=== PATIENT | female | born 1980 | race Caucasian/White ===

== ENCOUNTER 2019-06-14 19:23 | Emergency (ER) | payer OTHER ==
[2019-06-14 19:43] VITALS: TEMP 97.9
[2019-06-14 19:43] LABS: Glucose,Whole Blood 222 mg/dL (75-99)
[2019-06-14] MEDS ORDERED: NALOXONE 0.4 MG/ML 10 ML VIAL IVP STA (19:45)
[2019-06-14] MEDS ORDERED: ONDANSETRON 4 MG/2 ML VIAL IVP STA (19:46)
[2019-06-14] MEDS ORDERED: SODIUM CHLORIDE 0.9% 1,000 ML IV STA (19:53)
[2019-06-14 19:58] LABS: HCT 38.3 % (34.0-46.0); HGB 11.9 gm/dL (11.4-16.0); Hypochromasia Slight; MCH 27.5 pg (25.0-35.0); MCHC 31.1 g/dL (31.0-37.0); MCV 88.5 fL (80.0-100.0); Mean Platelet Volume 8.5; Platelet Count 414 k/uL (150-450); RBC 4.33 m/uL (3.80-5.40); RDW 15.2 % (11.5-15.5); WBC 21.1 k/uL (3.8-10.6)
[2019-06-14 20:01] LABS: ALT 11 U/L (4-34); AST 19 U/L (14-36); Acetaminophen <10.0 ug/mL; African American GFR (CKD) >90 (>60 ml/min/1.73 sqM); Albumin 3.8 g/dL (3.5-5.0); Alcohol <10 mg/dL; Alkaline Phosphatase 81 U/L (38-126); Anion Gap 9 mmol/L; Blood Urea Nitrogen 12 mg/dL (7-17); Calcium 8.7 mg/dL (8.4-10.2); Carbon Dioxide 27 mmol/L (22-30); Chloride 100 mmol/L (98-107); Glucose 206 mg/dL (74-99); Non-African American GFR(CKD) >90 (>60 ml/min/1.73 sqM); Potassium 4.3 mmol/L (3.5-5.1); Salicylate 1.1 mg/dL; Sodium 136 mmol/L (137-145); Total Bilirubin 0.2 mg/dL (0.2-1.3); Total Protein 6.4 g/dL (6.3-8.2)
[2019-06-14 20:14] LABS: Appearance,Urine Clear (Clear); Bilirubin,Urine Negative (Negative); Blood,Urine Negative (Negative); Color,Urine Light Yellow; Glucose,Urine (UA) Negative (Negative); Ketones,Urine Negative (Negative); Leukocyte Esterase,Urine Negative (Negative); Nitrite,Urine Negative (Negative); PH, Urine 5.5 (5.0-8.0); Protein,Urine Negative (Negative); Urobilinogen,Urine <2.0 mg/dL (<2.0)
--- NOTE | 2019-06-14 20:25 | ED ---
Overdose HPI - General Stated Complaint: Unresponsive Time Seen by Provider: 06/14/19 19:30 Source: patient Mode of arrival: ambulatory Limitations: no limitations - History of Present Illness Initial Comments: Jaylene is a 38-year-old female is brought to the emergency department today by her daughter for possible overdose. History is provided by daughter upon arrival. Daughter reports that Jaylene came to her house was very upset stating that she was suicidal. She had mentioned that she had recently been prescribed anxiety medication by her primary care doctor. Her daughter is otherwise uncertain what medication she is on. Uncertain what she could've overdosed on but reports she decided to drive at the hospital for evaluation of suicidal thoughts and in route to the hospital patient stopped breathing and became blue. On waking patient admitted to snorting heroin, denies suicidal attempt. States she doesn't know why she did it. - Related Data Allergies Allergy/AdvReac Type Severity Reaction Status Date / Time aspirin Allergy Unknown Unknown Verified 06/14/19 19:44 Penicillins Allergy Unknown Unknown Verified 06/14/19 19:44 Pertussis Vaccines Allergy Unknown Unknown Verified 06/14/19 19:44 Review of Systems ROS Statement: Those systems with pertinent positive or pertinent negative responses have been documented in the HPI. ROS Other: All systems not noted in ROS Statement are negative. Past Medical History Past Medical History: Hypertension Past Surgical History: Section Smoking Status: Current every day smoker Past Alcohol Use History: None Reported Past Drug Use History: Heroin General Exam - General Exam Comments Initial Comments: Physical Exam GENERAL: Unresponsive HENT: Normocephalic, Atraumatic. EYES: Pupils 2 mm pinpoint minimally reactive PULMONARY: No spontaneous respirations upon initial evaluation, CARDIOVASCULAR: There is a regular rate and rhythm without any murmurs gallops or rubs. ABDOMEN: Soft and nontender with normal bowel sounds. SKIN: Skin is clear with no lesions or rashes and otherwise unremarkable. No tract morrow noted in the antecubital fossa : Deferred NEUROLOGIC: Unresponsive upon arrival After Narcan Patient is alert and oriented x3. Moving all extremities spontaneously MUSCULOSKELETAL: Normal extremities with adequate strength and full range of motion. No lower extremity swelling or edema. No calf tenderness. PSYCHIATRIC: Upset, admits to depression denies suicidal intentions Limitations: no limitations Course Vital Signs 06/14/19 06/14/19 06/14/19 19:33 19:49 20:48 Temperature 97.9 F 97.9 F Pulse Rate 120 H 85 Respiratory 18 4 L 18 Rate Blood Pressure 162/132 129/84 O2 Sat by Pulse 90 L 100 Oximetry Medical Decision Making - Medical Decision Making The patient was seen and evaluated immediately upon her in the emergency department, patient had arrived via private vehicle and was found to be unresponsive in the vehicle, BVM assisted respirations were initiated in triage and patient was wheeled to the resuscitation bay History is obtained from daughter at bedside there is concern for narcotic or benzodiazepine overdose IV access was obtained patient received Narcan and immediately was more awake alert and oriented Patient had some vomiting after Narcan Full workup was initiated, patient's leukocytosis likely reactive Patient is a drug screen other for amphetamines, methamphetamines and cocaine Patient medically cleared for evaluation by EPS Patient was evaluated by psychiatric services, patient is denying any suicidal attempt, patient's father declines to addition her, patient does admit to depression about the patient daughter comfortable with plan for discharge home. At this time patient has denied suicidal intent. Daughter will program director cable television her. S he is not petitioned and will be discharged home with referrals to outpatient management. - Lab Data Result diagrams: 06/14/19 19:42 06/14/19 19:42 Lab Results 06/14/19 06/14/19 06/14/19 Range/Units 19:32 19:42 19:42 WBC 21.1 H (3.8-10.6) k/uL RBC 4.33 (3.80-5.40) m/uL Hgb 11.9 (11.4-16.0) gm/dL Hct 38.3 (34.0-46.0) % MCV 88.5 (80.0-100.0) fL MCH 27.5 (25.0-35.0) pg MCHC 31.1 (31.0-37.0) g/dL RDW 15.2 (11.5-15.5) % Plt Count 414 (150-450) k/uL Neutrophils % (Manual) 49 % Lymphocytes % (Manual) 37 % Monocytes % (Manual) 9 % Eosinophils % (Manual) 5 % Neutrophils # (Manual) 10.34 H (1.3-7.7) k/uL Lymphocytes # (Manual) 7.81 H (1.0-4.8) k/uL Monocytes # (Manual) 1.90 H (0-1.0) k/uL Eosinophils # (Manual) 1.06 H (0-0.7) k/uL Nucleated RBCs 0 (0-0) /100 WBC Manual Slide Review Performed Hypochromasia Slight Sodium 136 L (137-145) mmol/L Potassium 4.3 (3.5-5.1) mmol/L Chloride 100 (98-107) mmol/L Carbon Dioxide 27 (22-30) mmol/L Anion Gap 9 mmol/L BUN 12 (7-17) mg/dL Creatinine 0.66 (0.52-1.04) mg/dL Est GFR (CKD-EPI)AfAm >90 (>60 ml/min/1.73 sqM) Est GFR (CKD-EPI)NonAf >90 (>60 ml/min/1.73 sqM) Glucose 206 H (74-99) mg/dL POC Glucose (mg/dL) 222 H (75-99) mg/dL POC Glu Vehicle Maintenance Technician ID Anila Ellington Calcium 8.7 (8.4-10.2) mg/dL Total Bilirubin 0.2 (0.2-1.3) mg/dL AST 19 (14-36) U/L ALT 11 (4-34) U/L Alkaline Phosphatase 81 (38-126) U/L Total Protein 6.4 (6.3-8.2) g/dL Albumin 3.8 (3.5-5.0) g/dL Urine Color Urine Appearance (Clear) Urine pH (5.0-8.0) Ur Specific Niles (1.001-1.035) Urine Protein (Negative) Urine Glucose (UA) (Negative) Urine Ketones (Negative) Urine Blood (Negative) Urine Nitrite (Negative) Urine Bilirubin (Negative) Urine Urobilinogen (<2.0) mg/dL Ur Leukocyte Esterase (Negative) Urine HCG, Qual (Not Detectd) Salicylates 1.1 mg/dL Urine Opiates Screen (NotDetected) Ur Oxycodone Screen (NotDetected) Urine Methadone Screen (NotDetected) Ur Propoxyphene Screen (NotDetected) Acetaminophen <10.0 ug/mL Ur Barbiturates Screen (NotDetected) U Tricyclic Antidepress (NotDetected) Ur Phencyclidine Scrn (NotDetected) Ur Amphetamines Screen (NotDetected) U Methamphetamines Scrn (NotDetected) U Benzodiazepines Scrn (NotDetected) Urine Cocaine Screen (NotDetected) U Marijuana (THC) Screen (NotDetected) Serum Alcohol <10 mg/dL 06/14/19 06/14/19 Range/Units 20:05 20:05 WBC (3.8-10.6) k/uL RBC (3.80-5.40) m/uL Hgb (11.4-16.0) gm/dL Hct (34.0-46.0) % MCV (80.0-100.0) fL MCH (25.0-35.0) pg MCHC (31.0-37.0) g/dL RDW (11.5-15.5) % Plt Count (150-450) k/uL Neutrophils % (Manual) % Lymphocytes % (Manual) % Monocytes % (Manual) % Eosinophils % (Manual) % Neutrophils # (Manual) (1.3-7.7) k/uL Lymphocytes # (Manual) (1.0-4.8) k/uL Monocytes # (Manual) (0-1.0) k/uL Eosinophils # (Manual) (0-0.7) k/uL Nucleated RBCs (0-0) /100 WBC Manual Slide Review Hypochromasia Sodium (137-145) mmol/L Potassium (3.5-5.1) mmol/L Chloride (98-107) mmol/L Carbon Dioxide (22-30) mmol/L Anion Gap mmol/L BUN (7-17) mg/dL Creatinine (0.52-1.04) mg/dL Est GFR (CKD-EPI)AfAm (>60 ml/min/1.73 sqM) Est GFR (CKD-EPI)NonAf (>60 ml/min/1.73 sqM) Glucose (74-99) mg/dL POC Glucose (mg/dL) (75-99) mg/dL POC Glu Vehicle Maintenance Technician ID Calcium (8.4-10.2) mg/dL Total Bilirubin (0.2-1.3) mg/dL AST (14-36) U/L ALT (4-34) U/L Alkaline Phosphatase (38-126) U/L Total Protein (6.3-8.2) g/dL Albumin (3.5-5.0) g/dL Urine Color Light Yellow Urine Appearance Clear (Clear) Urine pH 5.5 (5.0-8.0) Ur Specific Niles 1.010 (1.001-1.035) Urine Protein Negative (Negative) Urine Glucose (UA) Negative (Negative) Urine Ketones Negative (Negative) Urine Blood Negative (Negative) Urine Nitrite Negative (Negative) Urine Bilirubin Negative (Negative) Urine Urobilinogen <2.0 (<2.0) mg/dL Ur Leukocyte Esterase Negative (Negative) Urine HCG, Qual Not Detected (Not Detectd) Salicylates mg/dL Urine Opiates Screen Not Detected (NotDetected) Ur Oxycodone Screen Not Detected (NotDetected) Urine Methadone Screen Not Detected (NotDetected) Ur Propoxyphene Screen Not Detected (NotDetected) Acetaminophen ug/mL Ur Barbiturates Screen Not Detected (NotDetected) U Tricyclic Antidepress Not Detected (NotDetected) Ur Phencyclidine Scrn Not Detected (NotDetected) Ur Amphetamines Screen Detected H (NotDetected) U Methamphetamines Scrn Detected H (NotDetected) U Benzodiazepines Scrn Not Detected (NotDetected) Urine Cocaine Screen Detected H (NotDetected) U Marijuana (THC) Screen Not Detected (NotDetected) Serum Alcohol mg/dL Critical Care Time Critical Care Time: Yes Total Critical Care Time: 30 Critical Care Time: Critical Care Time Critical care time was exclusive of separately billable procedures and treating other patients and teaching time. Critical care was necessary to treat or prevent imminent or life-threatening deterioration. Given the critical condition in which the patient arrived, the patient was immediately assessed by myself and the nurse, and cardiac monitoring initiated due to the potential for rapid decompensation of the patient's clinical condition. During the course of the patients stay, I spent a considerable amount of time at the bedside performing serial re-evaluations of the patient's hemodynamic and clinical status because of the recognized potential threat to life or limb in this condition. I then had a chance to review not only all of the available current laboratory and radiographic studies obtained today, but I also reviewed old records available to me at the time. Additionally, any ancillary information available including central supply clerk records were reviewed. Sequential vital signs were obtained. Disposition Clinical Impression: Narcotic overdose Disposition: HOME SELF-CARE Condition: Stable Instructions (If sedation given, give patient instructions): Adult Overdose (ED) Is patient prescribed a controlled substance at d/c from ED?: No Referrals: None,Stated [Primary Care Provider] - 1-2 days
[2019-06-14 20:29] LABS: Amphetamine Screen,Urine Detected (NotDetected); Barbiturate Screen,Urine Not Detected (NotDetected); Benzodiazepines Screen,Urine Not Detected (NotDetected); Cocaine Screen,Urine Detected (NotDetected); Methadone Screen, Urine Not Detected (NotDetected); Opiate Screen,Urine Not Detected (NotDetected); Oxycodone Screen, Urine Not Detected (NotDetected); Phencyclidine Screen,Urine Not Detected (NotDetected); Tricyclic Antidepressant,Urine Not Detected (NotDetected); Urn Cannabinoid Scrn Not Detected (NotDetected)
[2019-06-14 21:04] LABS: Eosinophils # (M) 1.06 k/uL (0-0.7); Lymphocytes # (M) 7.81 k/uL (1.0-4.8); Neutrophils # (M) 10.34 k/uL (1.3-7.7); Neutrophils % (M) 49 %; Nucleated Red Blood Cells 0 /100 WBC (0-0); Total Cells Counted 100
[2019-06-14 23:05] VITALS: BP 136/65; PULSE 89; RESP 16
== END 2019-06-14 23:10 | disposition home or self-care (01) ==
LOC: EDBD → EC 19:23
DX: T40.601A Poisoning by unspecified narcotics, accidental (unintentional), initial encounter (principal); F17.200 Nicotine dependence, unspecified, uncomplicated; F32.9 Major depressive disorder, single episode, unspecified; Z88.0 Allergy status to penicillin; Z88.6 Allergy status to analgesic agent; Z88.7 Allergy status to serum and vaccine
CPT/HCPCS: 99291; 96374; 96375; 96361; 82075; 36415; 80053; 85025; 81003; 81025; 80306; 83520; G0480 ×2; J2310; J2405; 80320; 80329

== ENCOUNTER 2019-07-14 04:09 | Emergency (ER) | payer OTHER ==
[2019-07-14 04:16] VITALS: RESP 18
--- NOTE | 2019-07-14 04:34 | ED ---
Overdose HPI - General Chief Complaint: Overdose Stated Complaint: Overdose Time Seen by Provider: 07/14/19 04:13 Source: patient, RN notes reviewed, old records reviewed Mode of arrival: EMS Limitations: no limitations - History of Present Illness MD Complaint: accidental overdose -: minutes(s) Intent: unknown How Overdose Was Discovered: family/friend present at time, called 911 Context: Intentional Overdose: drug/ETOH problems Context: Accidental Overdose: wanted to get high Associated Symptoms: other (none) Treatments Prior to Arrival: narcan (self administered) - Related Data Allergies Allergy/AdvReac Type Severity Reaction Status Date / Time aspirin Allergy Unknown Unknown Verified 06/14/19 19:44 Penicillins Allergy Unknown Unknown Verified 06/14/19 19:44 Pertussis Vaccines Allergy Unknown Unknown Verified 06/14/19 19:44 Review of Systems ROS Statement: Those systems with pertinent positive or pertinent negative responses have been documented in the HPI. ROS Other: All systems not noted in ROS Statement are negative. Past Medical History Past Medical History: Hypertension History of Any Multi-Drug Resistant Organisms: None Reported Past Surgical History: Section Smoking Status: Current every day smoker Past Alcohol Use History: None Reported Past Drug Use History: Heroin General Exam Limitations: no limitations General appearance: alert, in no apparent distress, anxious Head exam: Present: atraumatic, normocephalic, normal inspection Eye exam: Present: normal appearance, PERRL, EOMI. Absent: scleral icterus, conjunctival injection, periorbital swelling ENT exam: Present: normal exam, mucous membranes moist Neck exam: Present: normal inspection. Absent: tenderness, meningismus, lymphadenopathy Respiratory exam: Present: normal lung sounds bilaterally. Absent: respiratory distress, wheezes, rales, rhonchi, stridor Cardiovascular Exam: Present: normal rhythm, tachycardia, normal heart sounds. Absent: systolic murmur, diastolic murmur, rubs, gallop, clicks GI/Abdominal exam: Present: soft, normal bowel sounds. Absent: distended, tenderness, guarding, rebound, rigid Extremities exam: Present: normal inspection, full ROM, normal capillary refill. Absent: tenderness, pedal edema, joint swelling, calf tenderness Back exam: Present: normal inspection Neurological exam: Present: alert, oriented X3, CN II-XII intact Psychiatric exam: Present: normal affect, normal mood Skin exam: Present: warm, dry, intact, normal color. Absent: rash Course Vital Signs 07/14/19 07/14/19 04:14 04:37 Temperature 101 F H 99 F Pulse Rate 90 87 Respiratory 18 18 Rate Blood Pressure 158/97 153/90 O2 Sat by Pulse 98 98 Oximetry Disposition Clinical Impression: Narcotic overdose Disposition: HOME SELF-CARE Condition: Fair Instructions (If sedation given, give patient instructions): Adult Overdose (ED) Is patient prescribed a controlled substance at d/c from ED?: No Referrals: None,Stated [Primary Care Provider] - 1-2 days
[2019-07-14 04:38] VITALS: BP 153/90; PULSE 87; TEMP 99
== END 2019-07-14 05:36 | disposition home or self-care (01) ==
LOC: EC 04:09
DX: T50.7X1A Poisoning by analeptics and opioid receptor antagonists, accidental (unintentional), initial encounter (principal); F17.200 Nicotine dependence, unspecified, uncomplicated; Z88.6 Allergy status to analgesic agent; Z88.0 Allergy status to penicillin; Z88.7 Allergy status to serum and vaccine
CPT/HCPCS: 99284

== ENCOUNTER 2019-07-16 21:09 | Emergency (ER) | payer OTHER ==
[2019-07-16] MEDS ORDERED: LISINOPRIL 20 MG TAB PO STA (21:38)
--- NOTE | 2019-07-16 21:42 | ED ---
General Adult HPI - General Chief complaint: Arrhythmia/Palpitations Stated complaint: Overdose Time Seen by Provider: 07/16/19 21:23 Source: patient, RN notes reviewed, old records reviewed Mode of arrival: ambulatory Limitations: no limitations - History of Present Illness Initial comments: 38-year-old female presenting for evaluation of palpitations and elevated blood pressure after snorting heroin. Patient states she has used heroin multiple times today. She has history of polysubstance abuse and previous heroin abuse. She states she was in rehab and had been clean for some time but she recently began using. She was seen for overdose in the emergency department within the past several days. She denies depression or suicidal ideation. She states this was for recreational purposes only. After she used her when she felt guilty and quite anxious. She checked her blood pressure and heart rate in both were elevated. She denied associated chest pain or dyspnea. She has been eating and drinking normally. Denies fever. Denies cough. She states she only snorts heroin does not inject. - Related Data Home Medications Medication Instructions Recorded Confirmed Bumetanide [Bumex] 1 mg PO TID PRN 07/16/19 07/16/19 Lisinopril 20 mg PO BID 07/16/19 07/16/19 Allergies Allergy/AdvReac Type Severity Reaction Status Date / Time aspirin Allergy Unknown Unknown Verified 07/16/19 22:05 Penicillins Allergy Unknown Unknown Verified 07/16/19 22:05 Pertussis Vaccines Allergy Unknown Unknown Verified 07/16/19 22:05 Review of Systems ROS Statement: Those systems with pertinent positive or pertinent negative responses have been documented in the HPI. ROS Other: All systems not noted in ROS Statement are negative. Past Medical History Past Medical History: Hypertension History of Any Multi-Drug Resistant Organisms: None Reported Past Surgical History: Section Past Psychological History: Anxiety Smoking Status: Current every day smoker Past Alcohol Use History: None Reported Past Drug Use History: Heroin General Exam Limitations: no limitations General appearance: alert, in no apparent distress Head exam: Present: atraumatic, normocephalic Eye exam: Present: normal appearance, PERRL ENT exam: Present: normal exam Neck exam: Present: normal inspection. Absent: tenderness, meningismus Respiratory exam: Present: normal lung sounds bilaterally Cardiovascular Exam: Present: regular rate, normal rhythm GI/Abdominal exam: Present: soft. Absent: distended, tenderness Extremities exam: Present: normal inspection Neurological exam: Present: alert, oriented X3. Absent: motor sensory deficit Psychiatric exam: Present: anxious. Absent: suicidal ideation Skin exam: Present: warm, dry, intact. Absent: cyanosis, diaphoretic Course Vital Signs 07/16/19 07/16/19 21:19 21:41 Temperature 98.6 F Pulse Rate 110 H Pulse Rate [ 103 H Electronic Equipment Repairer ] Respiratory 20 Rate Blood Pressure 158/96 O2 Sat by Pulse 100 Oximetry EKG Findings - EKG Comments: EKG Findings:: EKG: Normal sinus rhythm, rate of 96, NH interval 154, QRS duration 100, QTC 467, no ST segment elevation Medical Decision Making - Medical Decision Making 38 yo female with palpitations after snorting heroin. This was not a suicide attempt. Patient states blood pressure and heart rate were significant elevated. She has history of hypertension and is not taking her lisinopril. She is given a lisinopril in the emergency department. She is observed with no additional symptoms. Vital signs are improved with lisinopril and time. EKG is sinus rhythm no acute abnormalities. Patient is eager for discharge. She is instructed to abstain from illicit drugs specifically heroin. Disposition Clinical Impression: Palpitations, Heroin abuse Disposition: HOME SELF-CARE Condition: Fair Instructions (If sedation given, give patient instructions): Heart Palpitations (ED), Opioid Use Disorder (ED) Is patient prescribed a controlled substance at d/c from ED?: No Referrals: None,Stated [Primary Care Provider] - 1-2 days Victor Hugo Elise MD [STAFF PHYSICIAN] - 1-2 days Time of Disposition: 22:32
[2019-07-16 22:30] VITALS: BP 156/88; PULSE 91; RESP 16; TEMP 97.5
[2019-07-17 01:54] LABS: Urine Alcohol Negative (Negative); Urine Barbiturate Negative (Negative); Urine Cocaine Negative (Negative); Urine Methadone Negative (Negative); Urine Opiates Negative (Negative); Urine Phencyclidine Negative (Negative)
== END 2019-07-16 22:35 | disposition home or self-care (01) ==
LOC: EC 21:09
DX: F11.10 Opioid abuse, uncomplicated (principal); R00.2 Palpitations; I10 Essential (primary) hypertension; F17.200 Nicotine dependence, unspecified, uncomplicated; Z79.899 Other long term (current) drug therapy; Z88.0 Allergy status to penicillin; Z88.6 Allergy status to analgesic agent; Z88.7 Allergy status to serum and vaccine
CPT/HCPCS: 80306; 93005; 99285